=== PATIENT | female | born 1990 | race Caucasian/White ===

== ENCOUNTER → 2020-04-12 | Outpatient (CLI) | payer SELFPAY ==
[~2020-04-12] MED LIST: ACET250T2 PO; CONC27TA4 PO; IBUP80TA PO; MAPA500T17 PO; PRENTAB9 PO; STOO100C PO
== END ==
LOC: M LABSMTC 14:08
PROVIDERS: ATTEND Pediatrics
DX: Z20.828 Contact with and (suspected) exposure to other viral communicable diseases (principal)

== ENCOUNTER → 2024-03-05 | Outpatient (CLI) | payer SELFPAY ==
[~2024-03-05] MED LIST changes: +ACET250T18 PO; -ACET250T2 PO
[2024-03-05 13:55] LABS: HEMOGLOBIN 11.1 g/dl (12.0-15.5); MEAN CORPUSCULAR HEMOGLOBIN 29.1 pg (27.0-33.0); MEAN CORPUSCULAR HGB CONC 32.6 g/dl (32.0-36.5); PLATELET COUNT, AUTOMATED 219 10^3/uL (150-450); RED BLOOD COUNT 3.82 10^6/uL (4.00-5.40)
[2024-03-05 15:10] LABS: HIV 1&2 SCREEN NEGATIVE (NEGATIVE)
[2024-03-05 15:18] LABS: HEPATITIS C VIRUS ABY INDEX < 0.02 INDEX (<0.8)
== END ==
LOC: M PLALAB 11:00
PROVIDERS: ATTEND Nurse Practitioner Family
DX: O09.30 Supervision of pregnancy with insufficient antenatal care, unspecified trimester (principal)

== ENCOUNTER → 2024-03-06 | Outpatient (CLI) | payer MEDICAID, SELFPAY | LOC: M RAD 10:07 | PROVIDERS: ATTEND Nurse Practitioner Family | DX: O09.32 Supervision of pregnancy with insufficient antenatal care, second trimester (principal); Z3A.22 22 weeks gestation of pregnancy ==

== ENCOUNTER → 2024-03-31 | Outpatient (CLI) | payer SELFPAY | LOC: M RAD 10:14 | PROVIDERS: ATTEND Nurse Practitioner Family | DX: Z34.82 Encounter for supervision of other normal pregnancy, second trimester (principal); Z3A.26 26 weeks gestation of pregnancy ==

== ENCOUNTER → 2024-05-07 | Outpatient (CLI) | payer SELFPAY ==
[2024-05-07 16:13] LABS: HEMATOCRIT 33.8 % (36.0-47.0); HEMOGLOBIN 11.1 g/dl (12.0-15.5); MEAN CORPUSCULAR HEMOGLOBIN 28.7 pg (27.0-33.0); MEAN CORPUSCULAR HGB CONC 32.8 g/dl (32.0-36.5); MEAN CORPUSCULAR VOLUME 87.3 fl (80.0-96.0); PLATELET COUNT, AUTOMATED 234 10^3/uL (150-450); RED BLOOD COUNT 3.87 10^6/uL (4.00-5.40); WHITE BLOOD COUNT 9.2 10^3/uL (4.0-10.0)
[2024-05-07 16:38] LABS: GLUCOSE CHALLENGE TEST 1 HOUR 95 MG/DL (LESS THAN 140)
[2024-05-07 17:12] LABS: HIV 1&2 SCREEN NEGATIVE (NEGATIVE)
[2024-05-07 17:20] LABS: HEPATITIS C VIRUS ABY INDEX 0.03 INDEX (<0.8)
[2024-05-07 17:44] LABS: GC DNA AMPLIFICATION NEGATIVE (NEGATIVE)
== END ==
LOC: M PLALAB 11:05
PROVIDERS: ATTEND Obstetrics & Gynecology
DX: Z34.82 Encounter for supervision of other normal pregnancy, second trimester (principal)

== ENCOUNTER → 2024-06-10 | Outpatient (REF) | payer OTHER, SELFPAY ==
[~2024-06-10] MED LIST changes: +COLA100C5 PO; +DOCU100C16 PO; +IBUP1TAB7 PO
[2024-06-10 15:34] LABS: TOTAL PROTEIN,RANDOM URINE 42.2 MG/DL (0.0-14.0)
[2024-06-10 15:51] LABS: CREATININE,RANDOM URINE 270.3 MG/DL
== END ==
LOC: M SFHCWAGY 14:43
PROVIDERS: ATTEND Nurse Practitioner Family
DX: Z36.89 Encounter for other specified antenatal screening (principal); Z3A.36 36 weeks gestation of pregnancy

== ENCOUNTER 2024-07-01 11:06 | Inpatient (IN) | payer OTHER, SELFPAY ==
[~2024-07-01] VITALS: Ht 167.6 cm; Wt 129.4 kg
[2024-07-01] VITALS (17 sets, daily range): BP systolic 114–156; BP diastolic 68–92
[~2024-07-01 11:06] MED LIST changes: -COLA100C5 PO; -DOCU100C16 PO; -IBUP1TAB7 PO
[2024-07-01] MEDS ORDERED: LIDOCAINE 1% MDV 20ML VIAL INFIL PRN (11:20)
[2024-07-01] MEDS ORDERED: OXYTOCIN DRIP 30 UNITS in IV 1 EA IV PRN (11:20)
[2024-07-01 12:26] LABS: HEMATOCRIT 32.3 % (36.0-47.0); HEMOGLOBIN 10.6 g/dl (12.0-15.5); MEAN CORPUSCULAR HEMOGLOBIN 27.5 pg (27.0-33.0); MEAN CORPUSCULAR HGB CONC 32.8 g/dl (32.0-36.5); MEAN CORPUSCULAR VOLUME 83.9 fl (80.0-96.0); PLATELET COUNT, AUTOMATED 253 10^3/uL (150-450); RED BLOOD COUNT 3.85 10^6/uL (4.00-5.40); WHITE BLOOD COUNT 8.3 10^3/uL (4.0-10.0)
[2024-07-01] MEDS: miSOPROStol 50MCG 1/2 TABLET SL SCH (12:43)
[2024-07-01] MEDS: LR 1,000 ML IV SCH (17:51)
[2024-07-01] MEDS: OXYTOCIN DRIP 30 UNITS in IV 1 EA IV SCH (17:51)
[2024-07-01] MEDS ORDERED: ACETAMINOPHEN 500 MG TAB PO PRN (22:45)
[2024-07-01] MEDS ORDERED: DOCUSATE SODIUM 100MG CAPSULE PO PRN (22:45)
[2024-07-01] MEDS ORDERED: RHOGAM 300MCG (1500IU) INJ IM SCH (22:45)
[2024-07-01] MEDS ORDERED: ACETAMINOPHEN 325 MG TAB PO PRN (22:45)
[2024-07-01] MEDS ORDERED: IBUPROFEN 800 MG TAB PO PRN (22:45)
[2024-07-01] MEDS ORDERED: METHYLERGONOVINE MALEATE 0.2 MG TAB PO PRN (22:45)
[2024-07-01] MEDS ORDERED: DIBUCAINE 1% OINTMENT 30GM TOP PRN (22:45)
[2024-07-02 01:10] VITALS: BP 138/90; O2SAT 99
[2024-07-02 02:00] VITALS: BP 106/61; O2SAT 97
[2024-07-02 06:00] VITALS: BP 137/80; O2SAT 99
[2024-07-02] MEDS: PRENATAL VITAMINS CHEWABLE TABLET PO SCH (08:14)
[2024-07-02 18:00] VITALS: BP 132/81; O2SAT 99
[2024-07-02] MEDS: IBUPROFEN 600MG TAB PO PRN (19:55)
[2024-07-03 06:00] VITALS: BP 132/78; O2SAT 99
[2024-07-03] MEDS: MEASLES,MUMPS,RUBELLA VACCINE INJ (MMR-II) SC.IMMUN ONE (09:00)
[2024-07-03] MEDS ORDERED: IBUP80TA PO (10:51)
[2024-07-03] MEDS ORDERED: COLA100C5 PO (10:51)
[2024-07-03] MEDS ORDERED: IBUP1TAB7 PO (11:22)
[2024-07-03] MEDS ORDERED: DOCU100C16 PO (11:22)
== END 2024-07-03 15:55 | disposition home or self-care (01) | DRG 560 ==
LOC: M LDI 11:06 → M OBS 07-02 00:38
PROVIDERS: ADMIT Specialist; ATTEND Specialist
PROC: 10E0XZZ Delivery of Products of Conception, External Approach (ICD-10-PCS; principal; 2024-07-01)
PROC: 3E0P7GC Introduction of Other Therapeutic Substance into Female Reproductive, Via Natural or Artificial Opening (ICD-10-PCS; 2024-07-01)
PROC: 10907ZC Drainage of Amniotic Fluid, Therapeutic from Products of Conception, Via Natural or Artificial Opening (ICD-10-PCS; 2024-07-01)
DX: O13.4 Gestational [pregnancy-induced] hypertension without significant proteinuria, complicating childbirth (principal); O62.3 Precipitate labor; Z3A.39 39 weeks gestation of pregnancy; Z88.8 Allergy status to other drugs, medicaments and biological substances; Z91.018 Allergy to other foods; Z37.0 Single live birth